=== PATIENT | female | born 1940 | race Caucasian/White ===

== ENCOUNTER 2021-12-30 11:52 | Inpatient (IN) | payer MEDICARE ==
[~2021-12-30] VITALS: Ht 162.6 cm; Wt 83.9 kg
[2021-12-30] MEDS ORDERED: HYDROCODONE/APAP 5MG-325MG TAB PO PRN (12:30)
[2021-12-30] MEDS ORDERED: LIDOCAINE 1% 5ML-MPF INJ ONE (13:00)
[2021-12-30 13:08] LABS: BASOPHILS % 0.3 % (0.0-1.0); EOSINOPHILS # (AUTO) 0.1 (0.0-0.4); EOSINOPHILS % 0.4 % (0.0-6.0); HEMATOCRIT 34.5 % (34.2-44.1); HEMOGLOBIN 11.5 g/dL (12.0-16.0); LYMPHOCYTES # (AUTO) 2.3 (1.0-3.2); LYMPHOCYTES % 18.7 % (18.0-39.1); MEAN CORPUSCULAR HEMOGLOBIN 30.3 pg (28-32); MEAN CORPUSCULAR HGB CONC 33.3 g/dL (31-35); MEAN CORPUSCULAR VOLUME 90.8 fL (81-99); MONOCYTES # (AUTO) 1.8 (0.2-0.8); MONOCYTES % 14.2 % (4.4-11.3); NEUTROPHILS # (AUTO) 8.2 (2.1-6.9); NEUTROPHILS % 65.8 % (38.7-80.0); PLATELET COUNT 318 x10e3/uL (140-360); RED CELL DISTRIBUTION WIDTH 12.5 % (11.7-14.4)
[2021-12-30] MEDS ORDERED: ONDANSETRON HCL INJ 2MG/ML 2ML 2 MG/ML VIAL IV PRN (13:15)
[2021-12-30] MEDS ORDERED: ONDANSETRON HCL INJ 2MG/ML 2ML 2 MG/ML VIAL ONE (13:22)
[2021-12-30] MEDS ORDERED: PROPOFOL IV EMULSION 10 MG/ML 20 ML VIAL ONE (13:22)
[2021-12-30] MEDS ORDERED: KETOROLAC TROMETHAMINE 30 MG/ML VIAL ONE (13:22)
[2021-12-30] MEDS ORDERED: POVIDONE IODINE 0.05% 0.05 % ML PO ONE (13:22)
[2021-12-30] MEDS ORDERED: LIDOCAINE HCL 2% LOCAL INJ 5 ML SDV VIAL INJ ONE (13:22)
[2021-12-30] MEDS ORDERED: DEXAMETHASONE SOD PHOS INJ 4 MG/ML SDV ONE (13:22)
[2021-12-30] MEDS ORDERED: SEVOFLURANE INHAL SOLN 250 ML PEN BTL ONE (13:22)
[2021-12-30 13:26] LABS: ALBUMIN 3.4 g/dL (3.5-5.0); ALBUMIN/GLOBULIN RATIO 0.7 (0.8-2.0); ANION GAP 15.2 mmol/L (8-16); CALCIUM 9.9 mg/dL (8.4-10.2); CREATININE, SERUM 0.91 mg/dL (0.57-1.11); POTASSIUM 3.2 mmol/L (3.5-5.1)
[2021-12-30] MEDS ORDERED: Vancomycin IV 1 GM in SODIUM CHLORIDE 0.9% 250ML 250 ML IV SCH (14:00)
[2021-12-30 14:10] VITALS: BP 118/61
[2021-12-30] MEDS: PIPERACILLIN/TAZOBACTAM 3.375 GM in SODIUM CHLORIDE 0.9% 50ML 50 ML IV SCH (14:12)
[2021-12-30] MEDS: SODIUM CHLORIDE 0.9% 1000ML 1,000 ML IV SCH (14:12)
[2021-12-30] MEDS ORDERED: METFORMIN HCL500 MG PO (14:58)
[2021-12-30] MEDS ORDERED: SERTRALINE HCL50 MG PO (14:58)
[2021-12-30] MEDS ORDERED: CELEBREX200 MG PO (14:58)
[2021-12-30] MEDS ORDERED: TRIAMTERENE-HCTZ1 EA PO (14:58)
[2021-12-30] MEDS ORDERED: LYRICA50 MG PO (14:58)
[2021-12-30] MEDS ORDERED: PRAVASTATIN SOD20 MG PO (14:58)
[2021-12-30] MEDS ORDERED: ASPIRIN300 MG RC (14:58)
[2021-12-30] MEDS ORDERED: METOPROLOL SUCC50 MG PO (14:58)
[2021-12-30 15:00] VITALS: BP 118/61
[2021-12-30] MEDS ORDERED: DEXTROSE 50% SYRINGE 50 ML IV PRN (15:00)
[2021-12-30] MEDS ORDERED: POTASSIUM CHLORIDE 20MEQ/100ML 200 ML IV ONE (15:30)
[2021-12-30 16:00] VITALS: BP 101/56
[2021-12-30] MEDS: INSULIN LISPRO 100 UNIT/1 ML 3ML VIAL SQ SCH ×2 (16:30→21:00)
[2021-12-30] MEDS ORDERED: BUPIVACAINE HCL 0.5% INJ 30 ML VIAL INJ ONE (17:16)
[2021-12-30] MEDS ORDERED: MUPIROCIN 2% OINT 22 GM TUBE ONE (18:00)
[2021-12-30 20:00] VITALS: BP 117/56
[2021-12-30 21:00] VITALS: BP 117/56
[2021-12-30] MEDS: PRAVASTATIN 20 MG TAB PO SCH (21:57)
[2021-12-31] VITALS (8 sets, daily range): BP systolic 99–125; BP diastolic 42–74
[2021-12-31] MEDS: PIPERACILLIN/TAZOBACTAM 3.375 GM in SODIUM CHLORIDE 0.9% 50ML 50 ML IV SCH ×3 (00:42→15:00)
[2021-12-31] MEDS: SODIUM CHLORIDE 0.9% 1000ML 1,000 ML IV SCH (00:42)
[2021-12-31 06:05] LABS: BASOPHILS % 0.2 % (0.0-1.0); HEMATOCRIT 33.4 % (34.2-44.1); HEMOGLOBIN 10.8 g/dL (12.0-16.0); LYMPHOCYTES # (AUTO) 1.3 (1.0-3.2); LYMPHOCYTES % 14.7 % (18.0-39.1); MEAN CORPUSCULAR HEMOGLOBIN 29.8 pg (28-32); MEAN CORPUSCULAR HGB CONC 32.3 g/dL (31-35); MEAN CORPUSCULAR VOLUME 92.3 fL (81-99); MONOCYTES # (AUTO) 0.5 (0.2-0.8); MONOCYTES % 6.1 % (4.4-11.3); NEUTROPHILS # (AUTO) 6.7 (2.1-6.9); NEUTROPHILS % 78.4 % (38.7-80.0); PLATELET COUNT 295 x10e3/uL (140-360); RED BLOOD COUNT 3.62 x10e6/uL (3.6-5.1); RED CELL DISTRIBUTION WIDTH 12.3 % (11.7-14.4)
[2021-12-31 06:22] LABS: ANION GAP 13.2 mmol/L (8-16); CALCIUM 9.3 mg/dL (8.4-10.2); CREATININE, SERUM 0.83 mg/dL (0.57-1.11); POTASSIUM 4.2 mmol/L (3.5-5.1)
[2021-12-31] MEDS: INSULIN LISPRO 100 UNIT/1 ML 3ML VIAL SQ SCH ×4 (07:30→21:00)
[2021-12-31] MEDS: METFORMIN HCL 500 MG TAB PO SCH (09:35)
[2021-12-31] MEDS: Vancomycin IV 1 GM in SODIUM CHLORIDE 0.9% 250ML 250 ML IV SCH ×2 (09:35→21:30)
[2021-12-31] MEDS: ASPIRIN 81 MG CHEW TAB PO SCH (09:35)
[2021-12-31] MEDS: SERTRALINE HCL 50 MG TAB PO SCH (09:36)
[2021-12-31] MEDS: PREGABALIN 50 MG CAP PO SCH (09:36)
[2021-12-31] MEDS: TRIAMTERENE/HCTZ 37.5-25 MG TAB PO SCH (09:36)
[2021-12-31] MEDS: METOPROLOL SUCCINATE 50 MG TAB XL PO SCH (09:36)
[2021-12-31] MEDS: CELECOXIB 200 MG CAP PO SCH (09:36)
[2021-12-31] MEDS: PRAVASTATIN 20 MG TAB PO SCH (21:30)
[2022-01-01] VITALS: BP 126/68
[2022-01-01] MEDS: PIPERACILLIN/TAZOBACTAM 3.375 GM in SODIUM CHLORIDE 0.9% 50ML 50 ML IV SCH ×2 (00:10→05:51)
[2022-01-01 04:00] VITALS: BP 127/77
[2022-01-01] MEDS: INSULIN LISPRO 100 UNIT/1 ML 3ML VIAL SQ SCH (07:30)
[2022-01-01 08:28] VITALS: BP 104/50
[2022-01-01] MEDS: METFORMIN HCL 500 MG TAB PO SCH (09:25)
[2022-01-01] MEDS: Vancomycin IV 1 GM in SODIUM CHLORIDE 0.9% 250ML 250 ML IV SCH (09:26)
[2022-01-01] MEDS: PREGABALIN 50 MG CAP PO SCH (09:26)
[2022-01-01] MEDS: CELECOXIB 200 MG CAP PO SCH (09:26)
[2022-01-01] MEDS: TRIAMTERENE/HCTZ 37.5-25 MG TAB PO SCH (09:26)
[2022-01-01] MEDS: ASPIRIN 81 MG CHEW TAB PO SCH (09:26)
[2022-01-01] MEDS: METOPROLOL SUCCINATE 50 MG TAB XL PO SCH (09:27)
[2022-01-01] MEDS: SERTRALINE HCL 50 MG TAB PO SCH (09:27)
[2022-01-01 11:08] VITALS: BP 104/50
[2022-01-01 12:03] VITALS: BP 98/53
== END 2022-01-01 13:00 | disposition home or self-care (01) | DRG 629 ==
LOC: ER 12:08 → ERHOLD 13:12 → MED/SURG2 14:10
PROVIDERS: ADMIT Internal Medicine; ATTEND Internal Medicine
PROC: 0L970ZZ Drainage of Right Hand Tendon, Open Approach (ICD-10-PCS; 2021-12-30)
PROC: 0PBT0ZZ Excision of Right Finger Phalanx, Open Approach (ICD-10-PCS; principal; 2021-12-30 17:00)
DX: E11.69 Type 2 diabetes mellitus with other specified complication (principal); M86.8X4 Other osteomyelitis, hand; L97.518 Non-pressure chronic ulcer of other part of right foot with other specified severity; L03.011 Cellulitis of right finger; E87.6 Hypokalemia; E66.9 Obesity, unspecified; Z68.32 Body mass index [BMI] 32.0-32.9, adult; Z79.899 Other long term (current) drug therapy; Z20.822 Contact with and (suspected) exposure to COVID-19; E11.42 Type 2 diabetes mellitus with diabetic polyneuropathy; F32.A Depression, unspecified; I11.9 Hypertensive heart disease without heart failure; A49.01 Methicillin susceptible Staphylococcus aureus infection, unspecified site; E11.621 Type 2 diabetes mellitus with foot ulcer; B35.1 Tinea unguium; M65.141 Other infective (teno)synovitis, right hand
CPT/HCPCS: 36415; 71045; 80048; 80053; 80202; 82948; 83036; 83605; 85025; 87040; 87071; 87075; 87186; 87205; 93005; 94799; 99284; J1100; J1885; J2001; J2405; J2543; J3370; J3480; J7030; J7050; U0002